=== PATIENT | male | born 1985 | race Caucasian/White ===

== ENCOUNTER 2021-12-25 11:08 | Emergency (ER) | payer MEDICAID, SELFPAY ==
[2021-12-25 12:00] VITALS: BP 181/94; PULSE 86; RESP 19; TEMP 36.7; O2SAT 98; BMI 29.5
--- NOTE | 2021-12-25 12:10 | US_ITS ---
FINAL REPORT TECHNIQUE: Ultrasound images of the testicles were obtained bilaterally. Color Doppler images were obtained. CLINICAL HISTORY: SWELLING FINDINGS: The testicles are normal in size and echotexture bilaterally. Arterial flow is identified bilaterally. No intratesticular masses are identified. There are no significant hydroceles. Simple 5 mm right epididymal cyst. Epididymal structures otherwise unremarkable. IMPRESSION: No evidence of testicular torsion or mass. Reviewed, Interpreted and Dictated by Rosalina Rodriguez MD Transcribed by Baldev Diaz Authenticated and . [facility]
--- NOTE | 2021-12-25 12:35 | EXP.UTC ---
Discharge Plan Disposition Patient Disposition: Home, Self-Care Condition: Good Prescriptions Prescriptions: New levofloxacin 500 mg tablet 500 mg PO DAILY 10 Days Qty: 10 0RF Referrals Follow up/Referrals: Provider,Referral, MD [Primary Care Provider] - See instructions Activity Restrictions/Add. Instructions Additional Instructions/Restrictions: Take medication as prescribed Follow up with your Family Doctor if no improvement or any worsening of symptoms Return if needed Straight to ER if any life threatening symptoms Clinical Impressions Clinical Impression: Epididymitis Instructions Patient Instructions: DI for Epididymitis Discharge ED Provider: Madeleine Garcia [facility] [place] H[place] General Stated complaint: Inflammation in gential area Mode of Arrival: Ambulatory Source of Information: Patient Limitations: No Limitations Time Seen by Provider: 12/25/21 12:35 Description of Symptoms (Recalled from Triage Doc. by RN): PATIENT STATES HE FEELS LIKE A VEIN IS SWOLLEN IN HIS TESTICLES SINCE YESTERDAY HEENT Symptoms (Recalled from RN notes): No Resp Symptoms (Recalled from RN notes): No Skin Symptoms (Recalled from RN notes): No MS Symptoms (Recalled from RN notes): No Functional Status (Recalled from RN notes): WNL History of Present Illness Provider Complaint: Patient states that he feels like there is a vein swollen in his right testicle States that area is sore when he touches it or moves and sits certain ways States that he has been urinating more frequently Denies fever denies obvious swelling states that area uncomfortable at times Related Data Previous Rx's Medication Instructions Recorded levofloxacin 500 mg tablet 500 mg PO DAILY 10 days #10 tabs 12/25/21 Allergies Allergy/AdvReac Type Severity Reaction Status Date / Time Penicillins Allergy Verified 12/25/21 12:24 Worker's Comp Is this a Worker's Comp case?: No [facility] Medical History (Updated 12/25/21 @ 14:06 by Madeleine Garcia, [employer]LL[employer]INE[employer]) Anxiety Social History (Updated 12/25/21 @ 12:23 by Khushbu Bassett RN) Smoking Status: Current every day smoker alcohol intake: never current occupational status: other Travel in the last 8 weeks: None ROS Obtained: Yes All systems reviewed & no additional complaints except as documented and Yes Systems reviewed as appropriate & no additional complaints except as documented Constitutional Constitutional: Reports system reviewed and no additional complaints, except as documented, Reports as per HPI, Denies fatigue, Denies fever(s) and Denies headache(s) ENT Ears, Nose, Mouth, and Throat: Reports system reviewed and no additional complaints, except as documented, Reports as per HPI and Denies headache(s) Cardiovascular Cardiovascular: Reports system reviewed and no additional complaints, except as documented and Reports as per HPI Respiratory Respiratory: Reports system reviewed and no additional complaints, except as documented and Reports as per HPI Gastrointestinal Gastrointestingal: Reports system reviewed and no additional complaints, except as documented and as per HPI; Denies abdominal pain Genitourinary Male Genitourinary: Reports system reviewed and no additional complaints, except as documented, Reports as per HPI, Denies testicular pain and Reports other (thinks daphne is swollen in testicle ) Neurologic Neurologic: Denies headache(s) Endocrine Endocrine: Denies fatigue Physical Exam General General appearance: alert and in no apparent distress Respiratory Respiratory exam: Present normal lung sounds bilaterally; Absent respiratory distress or wheezes Cardiovascular Cardiovascular exam: Present regular rate, normal rhythm and normal heart sounds Abdominal Exam Abdominal exam: Present soft, distention and normal bowel sounds exam: Present testicular tenderness (mild tenderness no obvious swelling or redness noted) Neurological Exam Neurological exam: Present alert, oriented
[2021-12-25 13:46] LABS: Apearance,Urine Clear (Clear); Bilirubin,Urine Negative (Negative); Blood, Urine Negative (Negative); Color,Urine Yellow (Yellow); Glucose,Urine (UA) Negative (Negative); Ketones,Urine Negative (Negative); PH,Urine 7.5 (5.0-8.5); Protein,Urine Negative (Negative); Specific Gravity, Urine 1.015 (1.005-1.030); UTC Leukocyte Esterase,Urine Negative (Negative); UTC Nitrate,Urine Negative (Negative); Urobilinogen,Urine 0.2 EU/dl (0.2)
[2021-12-25 13:49] LABS: Microscopic, Urine URINE MICROSCOPIC (MICROSCOPIC)
[2021-12-25 13:56] LABS: Appearance,Urine CLEAR (Clear); Bilirubin,Urine Negative (Negative); Blood, Urine Negative (Negative); Color,Urine YELLOW (Yellow); Glucose,Urine (UA) Negative (Negative); Ketones,Urine Negative (Negative); Leukocyte Esterase,Urine Negative (Negative); Nitrate,Urine Negative (Negative); PH,Urine 7.5 (5.0-8.5); Protein,Urine Negative (Negative); Urobilinogen,Urine 0.2 EU/dl (0.2)
[2021-12-25 14:07] LABS: Bacteria,Urine Trace /lpf
[2021-12-25 14:08] VITALS: BP 181/94; PULSE 86; RESP 19; TEMP 36.7; O2SAT 98
[2021-12-26 22:12] LABS: Neisseria gonorrhoeae, NAA Negative (Negative)
== END 2021-12-25 14:12 | disposition home or self-care (01) ==
PROVIDERS: Emergency Provider Nurse Practitioner
DX: N45.1 Epididymitis (principal); R35.0 Frequency of micturition; F41.9 Anxiety disorder, unspecified; F17.210 Nicotine dependence, cigarettes, uncomplicated; Z79.899 Other long term (current) drug therapy; Z88.0 Allergy status to penicillin
CPT/HCPCS: 76870; 81001; 81003; 87491; 87591; 99213; G0463